=== PATIENT | male | born 1955 | race Caucasian/White ===

== ENCOUNTER 2021-10-09 15:29 | Emergency (ER) | payer BC, OTHER ==
[~2021-10-09] VITALS: Ht 177.8 cm; Wt 91.0 kg
[2021-10-09 15:32] VITALS: BP 134/77
[2021-10-09] MEDS ORDERED: TRAZ-252 PO (15:36)
[2021-10-09] MEDS ORDERED: PARO-38 PO (15:36)
== END 2021-10-09 17:27 | disposition left against medical advice (07) ==
LOC: EMS 15:32
DX: R44.0 Auditory hallucinations (principal); Z53.21 Procedure and treatment not carried out due to patient leaving prior to being seen by health care provider